=== PATIENT | male | born 1945 | race Caucasian/White ===

== ENCOUNTER 2019-07-01 10:31 | Inpatient (IN) | payer MEDICARE, OTHER ==
[~2019-07-01] VITALS: Ht 182.9 cm; Wt 76.0 kg
[~2019-07-01 10:31] MED LIST: AMLODIPINE-BEN1 EAC5 PO; ASPIRIN81 MG PO; DICYCLOMINE HCL20 MG PO; METFORMIN HCL1000 MG PO; TRILIPIX135 MG PO; VYTORIN 10-801 EACH PO
[2019-07-01] MEDS ORDERED: METHYLPREDNISOLONE SOD SUCC 125 MG/2ML VIAL IV ONE (10:45)
[2019-07-01] MEDS ORDERED: ALBUTEROL/IPRATROPIUM 3 ML NEB NEB ONE (10:45)
[2019-07-01] MEDS ORDERED: ALBUTEROL SULF 0.083% NEB SOLN 3 ML NEB ONE (11:02)
[2019-07-01] MEDS ORDERED: ALBUTEROL/IPRATROPIUM 3 ML NEB ONE (11:02)
--- NOTE | 2019-07-01 11:17 | Diagnostic Imaging Report ---
X-ray chest AP portable History: Shortness of breath and swollen ankles. Comparison: None. Findings: Central airways unremarkable. Heart size to contiguous 13. Atherosclerotic aorta. Bilateral pleural effusions, left more than right. Bilateral repeat redistribution of pulmonary blood flow with peribronchial thickening and Yuliana's B lines. Visualized skeletal structures and upper abdomen unremarkable. Incidentally seen is left brachial artery calcification. Impression: Findings suggestive of an interstitial lung process which could include interstitial pulmonary edema, congestive heart failure with atypical pattern, other interstitial diseases such as infection and inflammation. Clinical correlation is requested. Signed by: José Antonio Aguiar MD on 07/01/2019 11:14 AM
[2019-07-01] MEDS ORDERED: FUROSEMIDE INJ 10 MG/ML 4 ML VIAL ONE (11:36)
--- NOTE | 2019-07-01 12:08 | Emergency Department Note ---
History of Present Illnes History of Present Illness Chief Complaint: Respiratory History of Present Illness This is a 74 year old male with SOB and JENNINGS for 4 days. No chest chirag n. Historian: Patient Arrival Mode: Car Onset (how long ago): day(s) (4) Location: chest Quality: SOB Radiation: non-radiation Severity: moderate Onset quality: gradual Duration (how long): day(s) (4) Timing of current episode: constant Progression: worsening Chronicity: new Relieving factors: none Exacerbating factors: none Associated symptoms: shortness of breath Treatments prior to arrival: none Past Medical/Family History Physician Review I have reviewed the patient's past medical and family history. Any updates have been documented here. Past Medical History Recent Fever: No Clinical Suspicion of Infectio: No New/Unexplained Change in Ment: No Past Medical History: Hypertension, Diabetes, CAD, Hyperlipedemia Other Surgery: angioplasty Social History Smoking Cessation: Current every day smoker Counseling Performed: Yes Alcohol Use: None Any Illegal Drug Use: No TB Exposure/Symptoms: No Physically hurt or threatened: No Family History Family history of heart diseas: Yes Other Any Pre-Existing Lines (PICC,: No Is patient up to date on immun: No Last Flu: never Last Pneumovax: never Review of Systems Review of Systems Constitutional: no symptoms EENTM: no symptoms Cardiovascular: no symptoms Respiratory: no symptoms, dyspnea, dyspnea on exertion Gastrointestinal: no symptoms Genitourinary: no symptoms Musculoskeletal: no symptoms Neurological: no symptoms Psychological: no symptoms Endocrine: no symptoms Hematological/Lymphatic: no symptoms Review of other systems All other systems reviewed and negative. Physical Exam Related Data Allergies: Coded Allergies: No Known Allergies (Unverified , 06/01/12) Triage Vital Signs Vital Signs Date Time Temp Pulse Resp B/P (MAP) Pulse Ox O2 Delivery O2 Flow Rate FiO2 07/01/19 10:48 97.6 96 24 140/76 84 07/01/19 11:14 Nasal Cannula 6.0 Vital signs reviewed: Yes Physical Exam CONSTITUTIONAL Constitutional: well-developed, well-nourished HENT HENT: normocephalic, atraumatic, oropharynx clear/moist, nose normal HENT L/R: left ext ear normal, right ext ear normal EYES Eyes: PERRL, conjunctivae normal NECK Neck: ROM normal PULMONARY Pulmonary: effort normal, breath sounds normal, rales CARDIOVASCULAR Cardiovascular: regular rhythm, heart sounds normal, capillary refill normal, normal rate GASTROINTESTINAL Abdominal: soft, nontender, bowel sounds normal GENITOURINARY Genitourinary: exam deferred SKIN Skin: warm, dry MUSCULOSKELETAL Musculoskeletal: ROM normal, swelling (ANKLES) NEUROLOGICAL Neurological: alert, oriented x 3, no gross motor or sensory deficits PSYCHOLOGICAL Psychological: mood/affect normal, judgement normal Results Laboratory Lab results reviewed: Yes Imaging Imaging results reviewed: Yes Critical Care Time Total Critical Care Time (min): 45 Critical care time exclusive o: separately billable procedures Critcal care necessary due to: respiratory failure Critcal care time spent by me: develop tx plan w patient/surrogate, discussion w consultants, discussion w primary provider, evaluation patient response to tx, examination of patient Subsequent provider I assumed direction of critical care for this patient from another provider of my specialty. Assessment & Plan Reassessment Reassessment time: 12:06 Reassessment IMPROVED Assessment & Plan Final Impression: (1) Hypoxia (2) COPD (chronic obstructive pulmonary disease) (3) CHF (congestive heart failure) Assessment & Plan Pt with CHF and COPD, will admit Depart Disposition: ADMITTED Last Vital Signs Date Time Temp Pulse Resp B/P (MAP) Pulse Ox O2 Delivery O2 Flow Rate FiO2 07/01/19 11:14 84 Nasal Cannula 6.0 07/01/19 10:56 102 22 07/01/19 10:48 97.6 140/76 Home Meds Reported Medications Amlodipine Besylate/Benazepril (AMLODIPINE-BENAZEPRIL 10-40 MG) 1 Each Capsule, 10 - 40 MG PO DAILY 06/04/12 Fenofibric Acid (Choline) (TRILIPIX) 135 Mg Capsule.dr, 135 MG PO DAILY 06/04/12 Ezetimibe/Simvastatin (VYTORIN 10-80 MG TABLET) 1 Each Tablet, 10 - 80 MG PO DAILY 06/04/12 Metformin Hcl (METFORMIN HCL) 1,000 Mg Tablet, 1000 MG PO BID 06/04/12 Dicyclomine Hcl (DICYCLOMINE HCL) 20 Mg Tablet, 20 MG PO PRN 06/04/12 Aspirin (ASPIRIN) 81 Mg Tab.chew, 81 MG PO DAILY 06/04/12 Medications in the ED Albuterol/ Ipratropium 3 ml ONCE ONCE NEB Last administered on 07/01/19at 10:56; Admin Dose 3 ML; Start 07/01/19 at 10:45; Stop 07/01/19 at 10:46; Status DC Methylprednisolone Sodium Succinate 125 mg ONCE ONCE IV Last administered on 07/01/19at 10:56; Admin Dose 125 MG; Start 07/01/19 at 10:45; Stop 07/01/19 at 11:10; Status DC Albuterol Sulfate 3 ml STK-MED ONCE .ROUTE ; Start 07/01/19 at 11:02; Stop 07/01/19 at 10:59; Status DC Albuterol/ Ipratropium 3 ml STK-MED ONCE .ROUTE ; Start 07/01/19 at 11:02; Stop 07/01/19 at 10:59; Status DC Furosemide 80 mg DAILY IV Last administered on 07/01/19at 11:30; Admin Dose 80 MG; Start 07/02/19 at 09:00; Stop 08/01/19 at 08:59 Furosemide 80 mg STK-MED ONCE .ROUTE ; Start 07/01/19 at 11:36; Stop 07/01/19 at 11:32; Status DC TRACI FONSECA MD July 01, 2019 12:08
[2019-07-01] MEDS ORDERED: ASPIRIN 81 MG CHEW TAB PO ONE (12:15)
[2019-07-01] MEDS ORDERED: TRILIPIX135 MG (12:31)
[2019-07-01] MEDS ORDERED: METFORMIN HCL500 MG PO (12:31)
[2019-07-01] MEDS ORDERED: LOTREL 10-40 M1 EACH PO (12:31)
[2019-07-01] MEDS ORDERED: VYTORIN 10-801 EACH PO (12:31)
--- OUTSIDE RECORDS SUMMARY | 2019-07-01 12:49 | XMS REPORT ---
Author Author [facility] Organization [facility] Address [address] [place]. [address] [place] [phone] Phone Unavailable Care Team Providers Care Behavioral Assistant Name Role Phone TRACI FONSECA Attphys Unavailable Problems This patient has no known problems. Allergies, Adverse Reactions, Alerts This patient has no known allergies or adverse reactions. Medications This patient has no known medications. Procedures This patient has no known procedures. Results Test Description Test Time Test Comments Results Result Comments Source CXR 1 BERNARDA - JONATHAN 2019-07-01 11:11:00 [place] [address] Patient Name: JAZMINE PRESSLEY MR #: [id number] : 1945 Age/Sex: 74/M Req #: [id number] Adm Physician: Ordered by: TRACI FONSECA MD Report #: [id number] Location: [facility] Room/Bed: Procedure: [id number] HOPD/CXR 1 BERNARDA JONATHAN Exam Date: 07/01/19 Exam Time: 1108 REPORT STATUS: Signed X-ray chest AP portable History: Shortness of breath and swollen ankles. Comparison: None. Findings: Central airways unremarkable. Heart size to contiguous 13. Atherosclerotic aorta. Bilateral pleural effusions, left more than right. Bilateral repeat redistribution of pulmonary blood flow with peribronchial thickening and Yuliana's B lines. Visualized skeletal structures and upper abdomen unremarkable. Incidentally seen is left brachial artery calcification. Impression: Findings suggestive of an interstitial lung process which could include interstitial pulmonary edema, congestive heart failure with atypical pattern, other interstitial diseases such as infection and inflammation. Clinical correlation is requested. Signed by: Jesus Larson MD on 07/01/2019 11:14 AM Dictated By: JESUS LARSON MD [id number] Transcribed By: HALLE on 07/01/19 1114 COPY TO: TRACI FONSECA MD
[2019-07-01] MEDS: ALBUTEROL/IPRATROPIUM 3 ML NEB NEB SCH ×2 (13:00→19:10)
[2019-07-01 15:04] VITALS: BP 142/80
[2019-07-01 15:13] VITALS: BP 142/80
--- NOTE | 2019-07-01 15:15 | NUR ---
RECEIVED PATIENT FROM [facility] ER TO ROOM 299, HE IS IN STABLE CONDITION. AAOX4. NC @ 3L, NO ACUTE DISTRESS NOTED. ORIENTED PATIENT AND TO ROOM AND POLICIES. CALL LIGHT WITHIN REACH. BED IN THE LOWEST POSITION.
[2019-07-01] MEDS ORDERED: ATORVASTATIN CA20 MG PO (15:47)
[2019-07-01 16:45] VITALS: BP 138/86
[2019-07-01] MEDS ORDERED: DEXTROSE 50% SYRINGE 50 ML IV PRN (17:15)
[2019-07-01 18:08] LABS: CREATINE KINASE MB 3.2 ng/mL (0-5.0)
--- NOTE | 2019-07-01 19:10 | NUR ---
BEDSIDE SHIFT REPORT GIVEN TO ONCOMING NURSE. PATIENT IS SITTING UP IN SIDE OF BED, NO ACUTE DISTRESS NOTED AT THIS TIME. CALL LIGHT WITHIN REACH. BED IN THE LOWEST POSITION.
--- NOTE | 2019-07-01 19:30 | NUR ---
Patient visited in room during nursing rounds. Patient alert and oriented x3. Ambulatory in room prn. Pt edematous especially on BLE. Pt on IV lasix BID. Pt denies any discomfort or pain at this time. Call gonzales within reach. Will monitor closely.
[2019-07-01] MEDS ORDERED: FUROSEMIDE INJ 10 MG/ML 4 ML VIAL IV SCH (21:00)
[2019-07-01 21:20] VITALS: BP 147/78
[2019-07-01] MEDS: INSULIN LISPRO 100 UNIT/1 ML 3ML VIAL SQ SCH (21:20)
[2019-07-01 21:25] VITALS: BP 147/78
--- NOTE | 2019-07-01 22:35 | History and Physical ---
CHIEF COMPLAINT: A 74-year-old gentleman, who comes in with shortness of breath for a week's time. HISTORY PRESENTING ILLNESS: This is a 74-year-old gentleman with a history of hypertension, history of hyperlipidemia, history of diabetes mellitus, history of coronary artery disease, and history of angioplasty in the past, was in usually state of health until about a week ago. The patient noticed to have some shortness of breath, but it exacerbated in about four days prior to this admission. The patient started to have some orthopnea, some PND, and this morning, the patient is acutely short of breath. Decided to come to the emergency room, was found to be in acute congestive heart failure, admitted to the hospital for acute congestive heart failure. PAST MEDICAL HISTORY: History of hypertension, history of diabetes, history of hyperlipidemia, history of colon cancer in the past and also history of angioplasty by Dr. Smith. PAST SURGICAL HISTORY: History of colon resection for transverse colon cancer, history of angioplasty, and also history of L4, L5, and S1 laminectomy. SOCIAL HISTORY: Positive for ETOH. He drinks about 7-10 drinks of vodka a week. He is a smoker, has been smoking for about 40 to 50 years, two pack, currently the patient has cut it down to half-a-pack for the last four weeks or so. No IV drug abuse. and lives with the . REVIEW OF SYSTEMS: Negative for chest pain. Positive for shortness of breath. Positive for orthopnea. Positive for PND. No nausea. No vomiting. No diarrhea. No constipation. No rectal bleeding. No hematochezia. No hematemesis. No headache. No diplopia. No blurry vision. No focal neurological signs. No hyperesthesias. No paresthesias either. ALLERGIES: THE PATIENT HAS NO KNOWN DRUG ALLERGIES. FAMILY HISTORY: Noncontributory. PHYSICAL EXAMINATION: GENERAL: The patient is alert and oriented x3, very comfortable after the diuresis. The patient feels less short of breath and is also on 3 L of oxygen. VITAL SIGNS: Temperature 98.5, pulse of 96, respirations of 20, blood pressure is 138/86, pulse oximetry of 95% on 3 L of oxygen. HEENT: Normocephalic, atraumatic. Pupils are reactive. CVS: S1 and S2 normal. Regular rate and rhythm. The patient has no JVD present. LUNGS: Positive for some crackles lower lung bases. ABDOMEN: Soft, nontender, and nondistended. EXTREMITIES: Positive for 2+ edema. LABORATORY VALUES: Done at the [facility], shows white count of 8.7, hemoglobin of 9.0, hematocrit 30.2, platelets 438, RDW 16.5. Chemistries; sodium of 142, potassium of 4.4, glucose of 130, BUN of 18, creatinine 0.8, ALT 44, AST 37, T bilirubin of 0.8. BNP was 2170. Troponin was less than 0.05. Myoglobin 208, CK-MB 2.9. IMAGING STUDIES: Chest x-ray shows interstitial lung process, which could include interstitial pulmonary edema, congestive heart failure, and atypical pattern and ejection. ASSESSMENT: Mr. Karsten Alonso is a 74-year-old with: 1. Acute congestive heart failure. Plan, echocardiogram, TSH, T4, T3. Continue with IV diuresis. The patient also will be seen by Dr. Smith, Cardiology. 2. Coronary artery disease with a history of angioplasty. Continue aspirin and we will restart his home medications. 3. Hypertension. The patient is currently on Lotrel, amlodipine, and benazepril. We will continue with that. 4. Diabetes mellitus. [place] insulin sliding scale low dose. We will hold off his metformin at this time. 5. History of colon cancer. 6. Chronic obstructive pulmonary disease. Will probably need albuterol Atrovent treatments. Will need a spirometry as an outpatient basis. PLAN: Continue keep the patient inpatient and schedule discharge in 1 to 2 days depending on Cardiology's workup. Further recommendation per clinical course. We will continue to monitor the patient along with Cardiology. Daily weights and ins and outs will be monitored and also ejection fraction will be noted. MD LISSY Vazquez/JOSÉ MIGUELL /[id number]
[2019-07-02] VITALS (8 sets, daily range): BP systolic 104–129; BP diastolic 55–80
[2019-07-02] MEDS: ALBUTEROL/IPRATROPIUM 3 ML NEB NEB SCH ×4 (00:55→19:45)
--- NOTE | 2019-07-02 06:50 | NUR ---
RECEIVED BEDSIDE SHIFT REPORT FROM OFF GOING NURSE. PATIENT IS RESTING IN BED, NO S/S OF DISTRESS NOTED. CALL LIGHT WITHIN REACH. BED IN THE LOWEST POSITION.
[2019-07-02 07:09] LABS: HEMATOCRIT 26.8 % (38.2-49.6); HEMOGLOBIN 7.8 g/dL (14.0-18.0); LYMPHOCYTES # (AUTO) 0.6 (1.0-3.2); LYMPHOCYTES % 8.7 % (18.0-39.1); MEAN CORPUSCULAR HGB CONC 29.1 g/dL (31-35); MEAN CORPUSCULAR VOLUME 68.7 fL (81-99); MONOCYTES # (AUTO) 0.5 (0.2-0.8); MONOCYTES % 7.4 % (4.4-11.3); NEUTROPHILS # (AUTO) 5.8 (2.1-6.9); NEUTROPHILS % 83.6 % (38.7-80.0); PLATELET COUNT 383 x10e3/uL (140-360); RED CELL DISTRIBUTION WIDTH 18.2 % (11.7-14.4)
[2019-07-02 07:29] LABS: BLOOD UREA NITROGEN 22 mg/dL (7-26); BUN/CREATININE RATIO 25 (6-25); CALCIUM 9.5 mg/dL (8.4-10.2); CARBON DIOXIDE 25 mmol/L (22-29); CHLORIDE 104 mmol/L (98-107); CHOL/HDL RATIO 4.3 (3.9-4.7); CHOLESTEROL 134 MD/DL (0-199); CREATININE, SERUM 0.88 mg/dL (0.72-1.25); EST GLOMERULAR FILTRATION RATE > 60 ML/MIN (60-); GLUCOSE 126 mg/dL (74-118); HDL CHOLESTEROL 31 MG/DL (40-60); LDL CHOLESTEROL 89 MG/DL (60-130); MAGNESIUM 1.5 MG/DL (1.3-2.1); SODIUM 139 mmol/L (136-145); TRIGLYCERIDES 69 MG/DL (0-149)
[2019-07-02] MEDS: INSULIN LISPRO 100 UNIT/1 ML 3ML VIAL SQ SCH ×4 (07:30→21:00)
[2019-07-02 07:56] LABS: CREATINE KINASE MB 3.2 ng/mL (0-5.0)
[2019-07-02] MEDS: ATORVASTATIN 20 MG TAB PO SCH (07:59)
[2019-07-02] MEDS: BENAZEPRIL HCL 10 MG TAB PO SCH (07:59)
[2019-07-02] MEDS ORDERED: [UNRECOGNIZED DRUG - OTHER] PO SCH (09:00)
[2019-07-02] MEDS ORDERED: AMLODIPINE BESYLATE 10 MG TAB PO SCH (09:00)
[2019-07-02] MEDS ORDERED: FUROSEMIDE INJ 10 MG/ML 4 ML VIAL IV SCH ×2 (09:00)
[2019-07-02] MEDS ORDERED: BENAZEPRIL PO SCH (09:00)
[2019-07-02] MEDS ORDERED: AMLODIPINE BESYLATE PO SCH (09:00)
[2019-07-02] MEDS ORDERED: ASPIRIN 81 MG CHEW TAB PO SCH (09:00)
[2019-07-02] MEDS ORDERED: NON-FORMULARY MEDICATION (Ezetimibe/Simvastatin (Vytorin 10-80 Mg Tablet) 1 TAB) PO SCH (09:00)
--- NOTE | 2019-07-02 09:01 | Progress Note ---
DATE: NO DICTATION. MD LISSY Vazquez/MODL /[id number]
--- NOTE | 2019-07-02 09:11 | Progress Note ---
DATE: SUBJECTIVE: The patient is a 74-year-old male, who came in with acute congestive heart failure, currently feeling better after the Lasix IV. He has been diuresing well. No chest pain. Positive for some shortness of breath still. No nausea. No vomiting. No diarrhea. No constipation. OBJECTIVE: VITAL SIGNS: Temperature is 97.6, pulse 66, respirations of 20, blood pressure is 119/69, pulse oximetry of 90%. He is on 3 L of oxygen. HEENT: Normocephalic and atraumatic. Pupils are reactive. CVS: S1 and S2. Regular. ABDOMEN: Nontender, nondistended. LUNGS: Positive few crackles at lung bases. Decreased air entry into all lung wahl. EXTREMITIES: Positive for 1+ edema. LABORATORY VALUES: None done today. Labs will be drawn today. ASSESSMENT: Mr. Karsten Alonso with: 1. Acute congestive heart failure. Echocardiogram is pending. A consult with Dr. Smith is also pending. 2. Coronary artery disease with angioplasty. Continue with aspirin. 3. Hypertension. Continue with current medications. 4. Diabetes mellitus. Sliding scale is on board. 5. History of colon cancer. 6. Chronic obstructive pulmonary disorders. We will give albuterol, Atrovent treatment when needed. 7. Nicotine dependence. The patient offered nicotine patches. Currently, he is not wanting it. 8. Further recommendation per clinical course. PLAN: Discharge in 1 to 2 days depending on Cardiology workup and echocardiogram. MD LISYS Vazquez/MODL /[id number]
[2019-07-02 09:37] LABS: ANISOCYTOSIS MODERATE; HYPOCHROMASIA MODERATE; OVALOCYTES FEW; PLATELET ESTIMATE SLIGHTLY INCREASED; PLATELET MORPHOLOGY COMMENT NORMAL; RBC MORPHOLOGY COMMENT ABNORMAL
[2019-07-02] MEDS: PANTOPRAZOLE 40 MG 10ML VIAL IV SCH ×2 (10:26→17:00)
[2019-07-02 10:28] LABS: ALBUMIN 3.6 g/dL (3.5-5.0); BILIRUBIN,DIRECT 0.3 mg/dL (0.0-0.5)
--- NOTE | 2019-07-02 12:03 | Consultation ---
DATE OF CONSULTATION: 07/02/2019 REASON FOR CONSULTATION: CHF. CHIEF COMPLAINT: Shortness of breath, lower extremity edema. HISTORY OF PRESENT ILLNESS: This is a 74-year-old male with history of CAD, status post PTCA in 1992, hypertension, hyperlipidemia, diabetes, and status post colon resection. The patient presents to [facility] ER with complaints of shortness of breath and lower extremity edema for the past several weeks. However, in recent history as noted that his shortness of breath has increased, therefore came to the ER for further evaluation. On imaging, he was noted with pulmonary edema. Cardiology was consulted for CHF symptoms. The patient is seen in room and reports has been short of breath with lower extremity edema for the past several weeks, however, recently has become worse, in which he becomes very short of breath with minimal activities. Also, labs were noted. The patient is anemic. The patient does report in recent history, has noted his stools change in color from brown to dark black, intermittent black color. Also, has noticed that he feels abdominal bloating in recent history and has been taking antacids without much relief. Currently, the patient is on nasal cannula, breathing comfortably. Denies any chest pain. However, the patient also denies any overt bloody stools. PAST MEDICAL HISTORY: CAD, status post PTCA in 1992, hyperlipidemia, hypertension, diabetes, colon resection, and chronic back pains. PAST SURGICAL HISTORY: PTCA 1992, colon resection 2012, status post lumbar laminectomy. SOCIAL HISTORY: He is . He is retired from the [employer]. Positive for alcohol use about 7 to 10 vodka cocktails a week. Positive for tobacco use. Previously was smoking 2 packs per day. Now it has decreased to half a pack per day for the past several weeks, about 40 to 50-year smoking history. FAMILY HISTORY: Mother , history of breast cancer. Father , history of hypertension. ALLERGIES: NO KNOWN ALLERGIES. HOME MEDICATIONS: Include metformin 1000 mg b.i.d., Zetia 10 mg daily, simvastatin 80 mg daily, fenofibrate 135 mg daily, Norvasc 10 mg daily, and benazepril 40 mg daily. REVIEW OF SYSTEMS: CONSTITUTIONAL: Denies any weight changes, fatigue, weakness, fevers, or night sweats. SKIN: Denies any sores or rashes. HEENT: Denies any nausea, vomiting, any blurred vision, double vision, epistaxis, sore throat, or swollen neck. HEART: Denies any chest pain. Positive for dyspnea on exertion. Positive for orthopnea. Positive for lower extremity edema. RESPIRATORY: Positive for shortness of breath. Positive for cough. Denies any hemoptysis. GI: Reports good appetite. Denies any nausea, vomiting, diarrhea, or constipation. Positive for black stools. Positive for abdominal bloating. URINARY: Denies any frequency, urgency, dysuria, or hematuria. VASCULAR: Positive for lower extremity edema. MUSCULOSKELETAL: Positive for generalized joint pains and back pains. NEUROLOGIC: Denies any numbness, tingling, tremors, weakness, paralysis, fainting, blackouts, or seizures. HEMATOLOGY: Denies any bruising or bleeding, however, does report black intermittent stools. ENDOCRINE: Denies any heat or cold intolerance, polyuria, polydipsia, or polyphagia. PHYSICAL EXAMINATION: VITAL SIGNS: Height 72 inches, weight 192 pounds, BMI 26. Temperature 98.4, pulse 90, respiratory rate 16, blood pressure 115/80, and pulse ox 97% on about 6 L nasal cannula. GENERAL: Appears stated age, reliable informant. SKIN: No rashes or bruises. HEENT: Normocephalic. Pupils are equal and reactive. Extraocular movements intact. Trachea midline. No JVD. Positive right carotid bruit. HEART: Regular rate and rhythm. Soft systolic murmur heard in the right upper sternal border. PMI about 4th and 5th intercostal space. LUNGS: Diminished throughout. Some crackles in lower bases. ABDOMEN: Soft, nontender, and nondistended. No organomegaly noted. MUSCULOSKELETAL: Good muscle strength throughout. +1 to 2 lower extremity edema noted. VASCULAR: +2 radial pulses bilaterally, +1 DP/PT pulses bilaterally. NEUROLOGIC: Cranial nerves 2 through 12 seem intact. LABORATORY DATA: White count 6, hemoglobin 7.8, hematocrit 26, and platelets 383. Chemistry; sodium 139, potassium 4.0, chloride 104, BUN 22, and creatinine 0.8. Troponin 0.02, next 0.03. TSH 0.4. Chest x-ray showing pulmonary congestion. EKG showing sinus rhythm with ST changes in the inferior leads. ASSESSMENT: 1. Acute systolic heart failure. 2. Gastrointestinal bleed with reported black stools. 3. Microcytic anemia. 4. Chronic obstructive pulmonary disease/smoker. 5. Hyperlipidemia. 6. Hypertension. 7. History of coronary artery disease, status post PTCA in 1992. PLAN: The patient presents to [facility] ER with complaints of shortness of breath and lower extremity edema for several weeks, noted with pulmonary congestion on x-ray, has responded to Lasix, reporting breathing much easier this a.m., however, does report has noticed recently bloating and has been taking antacids on a regular basis and with black stools intermittently was noted with notable anemia of microcytic. We will recommend the patient undergo GI workup given this anemia and reported black stools. We will stop antiplatelet therapy. We will go ahead and put the patient on a small dose of beta-cipriano. We will continue Lasix and gentle diuresis. We will obtain echo to evaluate heart function and structure. At this time, we will treat the patient conservatively from cardiac standpoint given notable anemia and need of workup given this anemia. We will continue to monitor the patient. Thank you very much for this consult. SEEN AND EXAMINED AGREE WITH NOTE Dictated by Earl Gomes NP Mireya Smith MD DC/TOMAS /[id number] COURTNEY
[2019-07-02] MEDS ORDERED: DIATRIZOATE MEGL/DIATRIZOA SOD 30 ML BTL PO ONE (14:50)
[2019-07-02] MEDS: FUROSEMIDE 40 MG TAB PO SCH (17:00)
[2019-07-02] MEDS: METOPROLOL TARTRATE 25 MG TAB PO SCH (17:00)
--- NOTE | 2019-07-02 17:16 | Diagnostic Imaging Report ---
Exam: CT abdomen and pelvis Clinical history: Anemia, colon cancer Technique: Helical images of the abdomen and pelvis were obtained after IV contrast administration Comparison: June 12, 2012 DOSE REDUCTION: The exams was performed according to the departmental dose-optimization program which includes automated exposure control, adjustment of the mA and/or kV according to patient size and/or use of iterative reconstruction technique. Findings: Moderate size bilateral pleural effusions are noted with associated atelectasis. The cardiac size is within normal limits. The liver, spleen, pancreas, gallbladder, adrenal glands, and kidneys are unremarkable. The small and large bowels are normal in caliber without evidence of obstruction. The bladder, prostate, and seminal vesicles are unremarkable. An infrarenal abdominal aortic aneurysm is again noted measuring 4.4 x 4.5 x 11.4 cm in the transverse, AP, and craniocaudal dimensions. Mural thrombus is also noted. However, there is no flow-limiting stenosis. Extensive atherosclerotic calcification is noted throughout the abdominal and pelvic vasculatures. There is no evidence of lymphadenopathy or free fluid. The IVC is within normal limits. Impression: 1. Infrarenal abdominal aortic aneurysm with interval increase in size from 3.7 x 3.7 cm previously to 4.5 x 4.4 cm today. Surgical consultation and 6 months follow-up is recommended. 2. Bilateral moderate pleural effusions with associated compressive atelectasis. Signed by: Dr. Avi Stevenson MD on 07/02/2019 5:13 PM
[2019-07-02] MEDS ORDERED: IOPAMIDOL 370 MG/ML 200 ML INFUS..BTL INJ ONE (17:54)
[2019-07-02] MEDS ORDERED: SODIUM CHLORIDE 0.9% 50ML 50 ML ONE (17:54)
--- NOTE | 2019-07-02 19:20 | NUR ---
patient received awake, alert, lying quietly in bed. no c/o pain noted. pm assessment complete. patient instructed to call for assistance when needed.
--- NOTE | 2019-07-02 21:20 | NUR ---
patient refused sliding scale insulin at this time.
[2019-07-03] VITALS (8 sets, daily range): BP systolic 100–129; BP diastolic 54–72
[2019-07-03] MEDS: ALBUTEROL/IPRATROPIUM 3 ML NEB NEB SCH ×4 (00:45→20:00)
[2019-07-03 06:24] LABS: BASOPHILS % 0.5 % (0.0-1.0); EOSINOPHILS # (AUTO) 0.1 (0.0-0.4); EOSINOPHILS % 1.4 % (0.0-6.0); HEMATOCRIT 25.4 % (38.2-49.6); HEMOGLOBIN 7.4 g/dL (14.0-18.0); LYMPHOCYTES # (AUTO) 1.4 (1.0-3.2); LYMPHOCYTES % 15.9 % (18.0-39.1); MEAN CORPUSCULAR HEMOGLOBIN 20.2 pg (28-32); MEAN CORPUSCULAR HGB CONC 29.1 g/dL (31-35); MEAN CORPUSCULAR VOLUME 69.4 fL (81-99); MONOCYTES # (AUTO) 0.7 (0.2-0.8); MONOCYTES % 8.1 % (4.4-11.3); NEUTROPHILS # (AUTO) 6.3 (2.1-6.9); NEUTROPHILS % 73.4 % (38.7-80.0); PLATELET COUNT 339 x10e3/uL (140-360); RED BLOOD COUNT 3.66 x10e6/uL (4.3-5.7); RED CELL DISTRIBUTION WIDTH 18.2 % (11.7-14.4)
[2019-07-03 06:53] LABS: ALANINE AMINOTRANSFERASE 23 IU/L (0-55); ALBUMIN 3.4 g/dL (3.5-5.0); ALBUMIN/GLOBULIN RATIO 1.1 (0.8-2.0); ALKALINE PHOSPHATASE 32 IU/L (40-150); ANION GAP 14.4 mmol/L (8-16); BLOOD UREA NITROGEN 26 mg/dL (7-26); BUN/CREATININE RATIO 25 (6-25); CALCIUM 8.7 mg/dL (8.4-10.2); CARBON DIOXIDE 28 mmol/L (22-29); CHLORIDE 100 mmol/L (98-107); CREATININE, SERUM 1.06 mg/dL (0.72-1.25); EST GLOMERULAR FILTRATION RATE > 60 ML/MIN (60-); GLUCOSE 101 mg/dL (74-118); POTASSIUM 4.4 mmol/L (3.5-5.1); SODIUM 138 mmol/L (136-145)
[2019-07-03] MEDS: INSULIN LISPRO 100 UNIT/1 ML 3ML VIAL SQ SCH ×4 (07:30→20:51)
[2019-07-03] MEDS: ATORVASTATIN 20 MG TAB PO SCH (09:32)
[2019-07-03] MEDS: FUROSEMIDE 40 MG TAB PO SCH (09:32)
[2019-07-03] MEDS: PANTOPRAZOLE 40 MG 10ML VIAL IV SCH ×2 (09:32→17:14)
[2019-07-03] MEDS: METOPROLOL TARTRATE 25 MG TAB PO SCH ×2 (09:33→16:58)
[2019-07-03] MEDS: BENAZEPRIL HCL 10 MG TAB PO SCH (09:33)
--- NOTE | 2019-07-03 09:42 | Progress Note ---
DATE: SUBJECTIVE: This is a 74-year-old gentleman who came in with acute on chronic congestive heart failure. In addition, the patient also was found to have a drop in hemoglobin and hematocrit, which prompted a study with Dr. Suárez, who was possibly going to do an endoscopy and colonoscopy. The patient's stool guaiac was negative. The patient also has pleural effusion seen on echocardiogram. EF was noted to be on the lower side 35%. Currently, the patient is asymptomatic, no chest pain, no shortness of breath and no nausea, vomiting, or diarrhea. OBJECTIVE: VITAL SIGNS: Temperature is 97.6, pulse of 78, respirations of 20, blood pressure is 125/72, pulse oximetry of 96%. HEENT: Normocephalic, atraumatic. Pallor present. CVS: S1 and S2 normal. Regular rate and rhythm. LUNGS: Positive for crackles in the lung with and also fine crackles in the upper lobes. ABDOMEN: Soft, nontender, nondistended. EXTREMITIES: No clubbing, no cyanosis, no edema. LABORATORY VALUES: White count is 8.63, hemoglobin is stabilized to 7.4, hematocrit 25.4. Chemistries; iron studies are pending. Sodium is 138, potassium 4.4, BUN of 26, and creatinine of 1.06. Vitamin B12 and folate are pending too. Serology; tolentino virus not detected and stool cultures negative as mentioned above. IMAGING STUDIES: An abdominal CT was done shows infrarenal abdominal aneurysm 3.37 initially on the previous study, but currently it is 4.5 to 4.4 and bilateral pleural effusion with associated compressive atelectasis. ASSESSMENT: Mr. Alonso with: 1. Acute on chronic congestive heart failure with depressed ejection fraction. 2. Possible gastrointestinal bleed, could be from upper GI, needs an endoscopy. 3. Pleural effusion and probable chronic obstructive pulmonary disease. We will need a CT of the lungs to further evaluate his lung. 4. Abdominal aortic aneurysm, enlarging in size. We will need surgical evaluation at a later date. 5. Diabetes mellitus, well-controlled. 6. Hypertension and hypertensive heart disease with congestive heart failure. PLAN: We will go ahead and follow up with iron and iron studies and vitamin B12 studies. We will need endoscopy. We will need cardiological workup and also we will do a CT scan of the lungs after colonoscopy and endoscopy. Further recommendation per clinical course. We will continue to monitor the patient. Currently, the patient is on IV diuresis and neb treatments for his COPD/bronchitis. Metoprolol has been added and continuum of statins right now. Further recommendation per clinical course. MD LISSY Vazquez/MODL /[id number]
[2019-07-03 10:09] LABS: FERRITIN 15.74 ng/mL (21.81-274.66)
[2019-07-03] MEDS ORDERED: METOLAZONE 5 MG TAB PO ONE ×2 (15:00→18:30)
[2019-07-03] MEDS ORDERED: FUROSEMIDE 40 MG TAB PO SCH (17:00)
--- NOTE | 2019-07-03 17:09 | NUR ---
Nutrition Screen Note RD Recommendation for Physician: -Continue cardiac diet Plan of Care: RD following, monitoring for tolerance and adequacy Nutrition reason for involvement: Diagnosis - CHF Primary Diagnose(s): CHF PMH: hypertension, diabetes, hyperlipidemia, colon cancer in the past and also history of angioplasty Ht: 72 in Wt:192 lb BMI: 26.0 kg/m2 IBW:[address] Assessment: (07/02) Chart reviewed. Labs and meds reviewed. Pt is a 74 year old male admitted with CHF. Pt reports a good appetite and mentioned he is eating all of his meals. No weight loss reported. No N/V/D/C or chewing/swallowing issues. Will continue to monitor. Current Diet: cardiac Malnutrition Evaluation (07/03/19) The patient does not meet criteria for a specified degree of malnutrition at this time. Will re-evaluate at follow-up as appropriate. Diet Education Needs Assessment: pt declined diet education materials at time of visit Nutrition Care Level: low Signed: Anh Navarrete, RD, LD
[2019-07-03] MEDS: IRON SUCROSE 100 MG in SODIUM CHLORIDE 0.9% 100 ML 100 ML IV SCH (17:14)
[2019-07-03] MEDS: SUCRALFATE 1 GM TAB PO SCH ×2 (17:27→20:53)
--- NOTE | 2019-07-03 18:40 | NUR ---
patient sitting up in bed, Alert with no distress, call light in reach
--- NOTE | 2019-07-03 19:05 | NUR ---
patient received awake, alert, lying quietly in bed. no c/o pain noted. pm assessment complete. patient instructed to call for assistance when needed.
[2019-07-03 20:23] LABS: PLATELET ESTIMATE ADEQUATE; PLATELET MORPHOLOGY COMMENT NORMAL
[2019-07-03 20:26] LABS: RBC MORPHOLOGY COMMENT ABNORMAL
[2019-07-03 20:27] LABS: ANISOCYTOSIS SLIGHT; HYPOCHROMASIA MARKED; POIKILOCYTOSIS SLIGHT
[2019-07-03 20:28] LABS: MICROCYTOSIS MODERATE
[2019-07-04] VITALS (8 sets, daily range): BP systolic 96–124; BP diastolic 49–72
[2019-07-04] MEDS: ALBUTEROL/IPRATROPIUM 3 ML NEB NEB SCH ×4 (01:30→19:58)
[2019-07-04 06:42] LABS: BASOPHILS % 0.4 % (0.0-1.0); EOSINOPHILS # (AUTO) 0.3 (0.0-0.4); HEMATOCRIT 27.2 % (38.2-49.6); HEMOGLOBIN 7.8 g/dL (14.0-18.0); LYMPHOCYTES # (AUTO) 1.2 (1.0-3.2); LYMPHOCYTES % 13.9 % (18.0-39.1); MEAN CORPUSCULAR HEMOGLOBIN 20.3 pg (28-32); MEAN CORPUSCULAR HGB CONC 28.7 g/dL (31-35); MEAN CORPUSCULAR VOLUME 70.8 fL (81-99); MONOCYTES # (AUTO) 0.8 (0.2-0.8); MONOCYTES % 9.8 % (4.4-11.3); NEUTROPHILS % 72.5 % (38.7-80.0); PLATELET COUNT 355 x10e3/uL (140-360); RED BLOOD COUNT 3.84 x10e6/uL (4.3-5.7)
[2019-07-04 07:03] LABS: ALANINE AMINOTRANSFERASE 22 IU/L (0-55); ALBUMIN 3.5 g/dL (3.5-5.0); ALBUMIN/GLOBULIN RATIO 1.2 (0.8-2.0); ALKALINE PHOSPHATASE 32 IU/L (40-150); ANION GAP 13.9 mmol/L (8-16); BLOOD UREA NITROGEN 21 mg/dL (7-26); BUN/CREATININE RATIO 21 (6-25); CALCIUM 9.7 mg/dL (8.4-10.2); CARBON DIOXIDE 33 mmol/L (22-29); CHLORIDE 100 mmol/L (98-107); CREATININE, SERUM 1.02 mg/dL (0.72-1.25); EST GLOMERULAR FILTRATION RATE > 60 ML/MIN (60-); GLUCOSE 94 mg/dL (74-118); POTASSIUM 4.9 mmol/L (3.5-5.1); SODIUM 142 mmol/L (136-145)
[2019-07-04] MEDS: INSULIN LISPRO 100 UNIT/1 ML 3ML VIAL SQ SCH ×4 (07:30→20:23)
[2019-07-04] MEDS ORDERED: METOLAZONE 5 MG TAB PO ONE (07:45)
[2019-07-04] MEDS: SUCRALFATE 1 GM TAB PO SCH ×4 (08:08→20:23)
[2019-07-04] MEDS: PANTOPRAZOLE 40 MG 10ML VIAL IV SCH ×2 (08:44→16:58)
--- NOTE | 2019-07-04 08:45 | Progress Note ---
DATE: SUBJECTIVE: A 74-year-old male, who came in with acute congestive heart failure. Currently, the patient is scheduled to get a colonoscopy and endoscopy on Friday tomorrow. The patient is otherwise doing fine. No chest pain or shortness of breath. He is able to sit up. No orthopnea, no PND. OBJECTIVE: VITAL SIGNS: Temperature is 98.6, pulse of 79, respirations of 18, blood pressure is 120/72, pulse oximetry of 92% on 6 L of oxygen. HEENT: Normocephalic and atraumatic. Pupils are reactive. No JVD present. CVS: S1 and S2 normal. Regular rate and rhythm. ABDOMEN: Nontender, nondistended. EXTREMITIES: No clubbing, no cyanosis, edema has decreased. LABORATORY DATA: Hemoglobin 7.8, hematocrit of 27.2. Chemistries pending today. Glucoses are running in the 170s. Serology tolentino virus not detected and stool occult was negative. ASSESSMENT AND PLAN: 1. Mr. Karsten rodriguez with acute on chronic congestive heart failure with depressed ejection fraction. 2. Gastrointestinal bleed, needs endoscopy. 3. Pleural effusion. We will do a CT scan of endoscopies are done. 4. Abdominal aortic aneurysm. We will need endovascular surgery. 5. Diabetes mellitus, controlled with insulin sliding scale. 6. Hypertension and hypertensive heart disease. Continue with Lasix. Further recommendation per clinical course. We will continue to monitor the patient and medicines reviewed and continue. MD LISSY Vazquez/MODL /[id number]
[2019-07-04] MEDS: BENAZEPRIL HCL 10 MG TAB PO SCH (08:46)
[2019-07-04] MEDS: ATORVASTATIN 20 MG TAB PO SCH (08:46)
[2019-07-04] MEDS: METOPROLOL TARTRATE 25 MG TAB PO SCH ×2 (08:46→16:58)
[2019-07-04] MEDS: FUROSEMIDE INJ 10 MG/ML 4 ML VIAL IV SCH ×2 (08:46→16:58)
[2019-07-04 11:33] LABS: ANISOCYTOSIS SLIG; HYPOCHROMASIA MODERATE; MICROCYTOSIS MODE; PLATELET ESTIMATE ADEQUATE; PLATELET MORPHOLOGY COMMENT NORMAL; RBC MORPHOLOGY COMMENT ABNORMAL
[2019-07-04] MEDS: IRON SUCROSE 100 MG in SODIUM CHLORIDE 0.9% 100 ML 100 ML IV SCH (15:04)
--- NOTE | 2019-07-04 17:42 | NUR ---
patient up in bed, Alert with no distress, on O2 high flow, call light in reach
--- NOTE | 2019-07-04 19:07 | NUR ---
Received bedside report from day nurse. Patient awake and resting in bed, no s/s of distress at this time. All safety measures in place. Will continue to monitor.
--- NOTE | 2019-07-04 23:44 | NUR ---
Per Dr. Red Suárez, plan for EGD and colonoscopy in AM. Received orders to give 20 mg Dulcolax now, and then 20 mg Dulcolax in 30 minutes x2, for a total of 3 doses. Give one bottle of mag citrate at 5AM and another bottle at 7AM, and then keep patient NPO.
[2019-07-05] VITALS (8 sets, daily range): BP systolic 92–124; BP diastolic 43–75
[2019-07-05] MEDS ORDERED: BISACODYL 5 MG TAB EC PO ONE ×2 (00:30)
[2019-07-05] MEDS: ALBUTEROL/IPRATROPIUM 3 ML NEB NEB SCH ×4 (01:05→19:48)
[2019-07-05] MEDS ORDERED: CITRATE OF MAGNESIA 300ML BOTTLE PO ONE ×2 (05:00→07:00)
[2019-07-05 05:56] LABS: BASOPHILS % 0.4 % (0.0-1.0); EOSINOPHILS # (AUTO) 0.2 (0.0-0.4); EOSINOPHILS % 2.5 % (0.0-6.0); LYMPHOCYTES # (AUTO) 1.2 (1.0-3.2); MONOCYTES % 9.9 % (4.4-11.3); NEUTROPHILS # (AUTO) 7.2 (2.1-6.9); NEUTROPHILS % 74.8 % (38.7-80.0); PLATELET COUNT 421 x10e3/uL (140-360); RED BLOOD COUNT 4.49 x10e6/uL (4.3-5.7); RED CELL DISTRIBUTION WIDTH 18.2 % (11.7-14.4)
[2019-07-05 06:18] LABS: ALBUMIN 3.8 g/dL (3.5-5.0); ALBUMIN/GLOBULIN RATIO 1.1 (0.8-2.0); CALCIUM 10.1 mg/dL (8.4-10.2); CREATININE, SERUM 1.25 mg/dL (0.72-1.25)
--- NOTE | 2019-07-05 07:08 | NUR ---
Received patient lying in bed with eyes open. Respiration even and unlabored without SOB. Call light in reach. PAtient is currently NPO at this time for procedure.
[2019-07-05] MEDS: INSULIN LISPRO 100 UNIT/1 ML 3ML VIAL SQ SCH ×4 (07:30→21:00)
[2019-07-05] MEDS: SUCRALFATE 1 GM TAB PO SCH ×4 (07:30→21:53)
[2019-07-05] MEDS: FUROSEMIDE INJ 10 MG/ML 4 ML VIAL IV SCH (08:01)
[2019-07-05] MEDS: PANTOPRAZOLE 40 MG 10ML VIAL IV SCH ×2 (08:01→16:27)
--- NOTE | 2019-07-05 08:45 | Progress Note ---
DATE: SUBJECTIVE: The patient is a 74-year-old male, who came in with acute congestive heart failure, systolic. The patient is currently scheduled for an EGD and colonoscopy in lieu of his microcytic anemia. No complaints and the patient had a bowel prep starting last night and has several episodes of watery stool. OBJECTIVE: VITAL SIGNS: Temperature is 98.8, pulse of 88, respirations of 20, blood pressure is 98/75 and pulse oximetry of 93%. HEENT: Normocephalic, atraumatic. Pupils are reactive. CVS: S1 and S2 normal. Regular rate and rhythm. ABDOMEN: Nontender, nondistended. EXTREMITIES: Trace edema. LABORATORY VALUES: Hemoglobin 9, hematocrit of 31.0. Chemistries are stable. BUN of 21, creatinine of 1.25. ASSESSMENT AND PLAN: Mr. Karsten Alonso with: 1. Acute on chronic congestive heart failure with depressed ejection fraction. 2. Gastrointestinal bleeding. 3. Pleural effusion. 4. Abdominal aortic aneurysm. 5. Diabetes. 6. Hypertension, currently hypertensive. 7. Plan to continue with current medications, schedule for endoscopy today. We will need a CT after endoscopy is done of the chest. Abdominal aneurysm will need endovascular surgery on a later date. 8. Diabetes mellitus. Continue on sliding scale, hypertension and hypertensive disease. We will monitor his blood pressure and his volume status. MD LISSY Vazquez/MODL /[id number]
[2019-07-05] MEDS: METOPROLOL TARTRATE 25 MG TAB PO SCH ×2 (09:00→16:27)
[2019-07-05] MEDS: ATORVASTATIN 20 MG TAB PO SCH (09:00)
[2019-07-05] MEDS: BENAZEPRIL HCL 10 MG TAB PO SCH (09:00)
[2019-07-05 12:28] LABS: HYPOCHROMASIA MODERATE; MICROCYTOSIS MODERATE; PLATELET ESTIMATE ADEQUATE; PLATELET MORPHOLOGY COMMENT NORMAL; RBC MORPHOLOGY COMMENT ABNORMAL
--- NOTE | 2019-07-05 13:45 | NUR ---
Transported patient for the procedure at this time.
--- NOTE | 2019-07-05 16:15 | NUR ---
Patient is back from procedure. awake, alert. Respiration even and unlabored without SOB. Call light in reach.
[2019-07-05] MEDS: IRON SUCROSE 100 MG in SODIUM CHLORIDE 0.9% 100 ML 100 ML IV SCH (16:26)
--- NOTE | 2019-07-05 16:41 | Operative Report ---
DATE OF PROCEDURE: 07/05/2019 SURGEON: Alok Suárez MD PROCEDURES: EGD with biopsies and colonoscopy with polypectomy. INDICATION FOR EGD: Dyspepsia. INDICATIONS FOR COLONOSCOPY: Iron deficiency anemia. History of CA of colon. MEDICATIONS: The patient was done under MAC, please see anesthesiologist's note. PROCEDURE IN DETAIL: With the patient in left lateral decubitus position, a flexible fiberoptic Olympus gastroscope was introduced into the esophagus under direct visualization without any difficulty. There was some patchy erythema noted in distal esophagus. Two minute tongues of velvety red mucosa were noted to extend proximally from the GE junction. Biopsies were obtained to rule out Nguyen's. The scope was then advanced with ease into the stomach, traversing a small hiatal hernia. Mucosa overlying the antrum revealed some patchy areas of erythema. Several minute ulcers were noted in the antrum and biopsies were obtained. A prominent fold that was also noted in the antrum and that was also biopsied. Pylorus was intubated with ease and the scope was advanced all the way to the second portion of the duodenum. A minute nodule was biopsied from the proximal second portion of the duodenal bulb, appeared to be within normal limits. The scope was then withdrawn back into the stomach and retroflexed, and mucosa overlying the fundus and cardia appeared to be within normal limits. The scope was then straightened out, it was subsequently withdrawn. The patient tolerated the procedure well. IMPRESSION: 1. Mild distal esophagitis. 2. Rule out Nguyen's esophagus. 3. Small hiatal hernia. 4. Gastric ulcers, minute, antrum biopsied. 5. Prominent fold, antrum biopsied. 6. Minute nodule, proximal second portion of the duodenum biopsied. PLAN: 1. Follow up histology. 2. Initiate Protonix 40 mg one p.o. q.a.m. a.c. 3. Biopsies of the prominent antral fold were benign, will need a followup EGD in 2 months to re-evaluate the fold and possibly obtain additional biopsies. DESCRIPTION OF PROCEDURE: The patient was then turned around after adequate lubrication of the anal canal, a flexible fiberoptic Olympus colonoscope was inserted into the rectum with ease and advanced all the way to the cecum. Mucosa overlying the cecum appeared to be within normal limits. Two sessile polyps were removed from the proximal ascending colon with hot snare polypectomy. One minute polyp in the distal ascending colon was removed per the cold biopsy forceps. Transverse colon appeared to be within normal limits. One polyp was hot snared from the descending colon. Diverticular disease was noted in the distal descending and the sigmoid colon. Two hyperplastic appearing polyps were removed per hot snare polypectomy from the sigmoid colon. The rectum appeared to be within normal limits. The scope was then retroflexed into the distal rectum and small internal hemorrhoids were noted, none of which was actively bleeding. The scope was then straightened out, it was subsequently withdrawn. The patient tolerated the procedure well. IMPRESSION: 1. Ascending colon polyps x3, two removed per hot snare polypectomy and one per cold biopsy forceps. 2. Descending colon polyp hot snared. 3. Diverticulosis. 4. Sigmoid colon polyp x2, removed per hot snare polypectomy. 5. Anastomosis was noted at 15 cm from the anal verge and that was intact, and there were no evidence of recurrence. 6. Internal hemorrhoids, none actively bleeding. PLAN: 1. Followup histology. 2. The patient will need small bowel series. 3. Colonoscopy in 3 years. Alok Suárez MD [facility] /[id number] cc: Partha Allan MD
--- NOTE | 2019-07-05 19:25 | NUR ---
RECEVED BEDSIDE SHIFT REPORT FROM DAY RN. PT IS ALERT AND ORIENTED X3. O2 ON 5L PER N/C. RESPIRATIONS ARE EVEN AND UNLABORED. TELE #13 ON. LUNGS ARE CLEAR.VOIDING PER URINAL. URINE IS CLEAR YELLOW. 20 G RT FA SL INTACT.PT DID NOT EAT DINNER. HE REFUSED INSULIN AT HS. OFFER SNACK BUT REFUSED. CALL LIGHT WITHIN REACH. BED LOCKED AND IN LOW POSITION. BED ALARM ON.
[2019-07-05] MEDS ORDERED: PROPOFOL IV EMULSION 10 MG/ML 20 ML VIAL ONE (19:28)
[2019-07-05] MEDS ORDERED: GLYCOPYRROLATE INJ 0.2 MG/ML VIAL ONE (19:28)
[2019-07-06] VITALS (7 sets, daily range): BP systolic 101–123; BP diastolic 53–61
[2019-07-06] MEDS: ALBUTEROL/IPRATROPIUM 3 ML NEB NEB SCH ×4 (01:10→19:52)
[2019-07-06 06:11] LABS: BASOPHILS # (AUTO) 0.1 (0.0-0.1); BASOPHILS % 0.4 % (0.0-1.0); EOSINOPHILS # (AUTO) 0.2 (0.0-0.4); EOSINOPHILS % 1.8 % (0.0-6.0); HEMATOCRIT 29.7 % (38.2-49.6); HEMOGLOBIN 8.9 g/dL (14.0-18.0); LYMPHOCYTES # (AUTO) 1.6 (1.0-3.2); LYMPHOCYTES % 13.8 % (18.0-39.1); MEAN CORPUSCULAR HEMOGLOBIN 21.1 pg (28-32); MEAN CORPUSCULAR VOLUME 70.5 fL (81-99); MONOCYTES # (AUTO) 1.2 (0.2-0.8); MONOCYTES % 10.9 % (4.4-11.3); NEUTROPHILS # (AUTO) 8.3 (2.1-6.9); NEUTROPHILS % 72.7 % (38.7-80.0); PLATELET COUNT 421 x10e3/uL (140-360); RED BLOOD COUNT 4.21 x10e6/uL (4.3-5.7); RED CELL DISTRIBUTION WIDTH 19.8 % (11.7-14.4)
[2019-07-06 06:29] LABS: ALBUMIN 3.4 g/dL (3.5-5.0); ANION GAP 13.7 mmol/L (8-16); CALCIUM 9.1 mg/dL (8.4-10.2); CREATININE, SERUM 1.24 mg/dL (0.72-1.25); POTASSIUM 3.7 mmol/L (3.5-5.1)
--- NOTE | 2019-07-06 07:00 | NUR ---
Received bedside shift report from off going nurse. Patient is resting in bed, no s/s of distress noted at this time. Call light within reach. Bed in the lowest position.
[2019-07-06] MEDS: INSULIN LISPRO 100 UNIT/1 ML 3ML VIAL SQ SCH ×4 (07:30→21:00)
[2019-07-06] MEDS: PANTOPRAZOLE 40 MG 10ML VIAL IV SCH ×2 (07:57→16:06)
[2019-07-06] MEDS: FUROSEMIDE 40 MG TAB PO SCH (07:57)
[2019-07-06] MEDS: BENAZEPRIL HCL 10 MG TAB PO SCH (07:57)
[2019-07-06] MEDS: ATORVASTATIN 20 MG TAB PO SCH (07:57)
[2019-07-06] MEDS: SUCRALFATE 1 GM TAB PO SCH ×4 (07:57→21:30)
[2019-07-06] MEDS: METOPROLOL TARTRATE 25 MG TAB PO SCH ×2 (07:57→16:06)
--- NOTE | 2019-07-06 08:28 | Progress Note ---
DATE: SUBJECTIVE: A 74-year-old gentleman who came in with acute congestive heart failure, systolic. The patient is currently feeling better. Had EGD and colonoscopy. EGD showed gastritis and also gastric ulcer. The patient is currently on Carafate for the same and PPI. No chest pain. No shortness of breath. Blood sugars have been running low because the patient did not have anything to eat yesterday. OBJECTIVE: VITAL SIGNS: Temperature is 98.4, pulse of 87, respirations of 18, blood pressure is 113/61, pulse oximetry of 98%. HEENT: Normocephalic, atraumatic. Pupils reactive. CVS: S1 and S2 normal. Regular rhythm. ABDOMEN: Soft, nontender, nondistended. EXTREMITIES: No clubbing, no cyanosis. Edema has decreased. LABORATORY VALUES: White count is 11, hemoglobin of 8.9, hematocrit of 29.7. Chemistries; sodium 136, potassium 3.7, BUN of 19, creatinine of 1.24. MEDICATIONS: Reviewed. The patient is currently on Carafate, metoprolol, atorvastatin, and furosemide 40 mg daily. ASSESSMENT: Mr. Karsten Alonso with: 1. Gastric ulcer. The patient is currently on Carafate and PPI. 2. Acute congestive heart failure. Lasix and volume assessment. 3. The patient has diabetes mellitus and hyperlipidemia. Continue current medication. 4. The patient needs risk stratification. This can be done as an outpatient if it is okay with Dr. Smith. PLAN: Discharged on Carafate and follow up with Dr. Smith and also Dr. Alok Suárez. Further recommendation per clinical course. We will continue to monitor the patient and will be followed up with his PCP, Dr. Peterson as an outpatient. MD LISSY Vazquez/JOSÉ MIGUELL /[id number]
--- NOTE | 2019-07-06 12:10 | NUR ---
Patient's oxygen dropped to 3L NC, patient is tolerating well. Denies SOB at this time.
[2019-07-06] MEDS: IRON SUCROSE 100 MG in SODIUM CHLORIDE 0.9% 100 ML 100 ML IV SCH (14:09)
--- NOTE | 2019-07-06 15:20 | NUR ---
Per CHRIS Elliott. Patient is ok to discharge home. He is to follow up with strap buckler for outpatient work up.
--- NOTE | 2019-07-06 16:06 | NUR ---
Received order for home o2. Spoke to pt at bedside. Pt states that he only has MCR part A. CM verified this with note from [employer]. Informed pt that with part A only, home oxygen would not be covered. Pt was fine with self pay for oxygen, states he was actually trying to get oxygen prior to coming to hospital. CM informed pt of self pay prices. Pt gave choice for [facility]. Signed choice letter placed in front of chart. Copy to pt. IMM letter delivered and explained. Pt verbalized understanding. Signed copy placed in chart. Copy to pt. Informed Jesus with [facility] of oxygen referral. He will come deliver portables and worm picker clinicals.
--- NOTE | 2019-07-06 16:49 | NUR ---
Jesus Pereyra is here to deliver portable tanks and picked up clinicals.
--- NOTE | 2019-07-06 19:18 | NUR ---
BEDSIDE SHIFT REPORT GIVEN TO ONCOMING NURSE. PATIENT IS RESTING IN BED, NO ACUTE DISTRESS NOTED. CALL LIGHT WITHIN REACH. BED IN THE LOWEST POSITION.
[2019-07-07] VITALS: BP 108/56
[2019-07-07] MEDS: ALBUTEROL/IPRATROPIUM 3 ML NEB NEB SCH ×2 (01:12→07:15)
[2019-07-07 04:00] VITALS: BP_SYST 109; BP_SYST 115; BP_DIAS 53; BP_DIAS 57
[2019-07-07 07:26] LABS: HEMATOCRIT 32.4 % (38.2-49.6); HEMOGLOBIN 9.3 g/dL (14.0-18.0)
[2019-07-07] MEDS: INSULIN LISPRO 100 UNIT/1 ML 3ML VIAL SQ SCH (07:30)
[2019-07-07] MEDS ORDERED: BENAZEPRIL HCL10 MG PO (07:37)
[2019-07-07] MEDS ORDERED: albuterol hfa INH (07:40)
[2019-07-07] MEDS ORDERED: metoprolol PO (07:40)
[2019-07-07] MEDS ORDERED: CARAFATE1 GM/10 ML PO (07:41)
[2019-07-07] MEDS ORDERED: FUROSEMIDE40 MG PO (07:41)
[2019-07-07] MEDS ORDERED: PROTONIX20 MG PO (07:42)
[2019-07-07 08:16] VITALS: BP 118/58
[2019-07-07] MEDS: SUCRALFATE 1 GM TAB PO SCH (08:35)
[2019-07-07] MEDS: PANTOPRAZOLE 40 MG 10ML VIAL IV SCH (08:35)
[2019-07-07] MEDS: FUROSEMIDE 40 MG TAB PO SCH (08:35)
[2019-07-07] MEDS: ATORVASTATIN 20 MG TAB PO SCH (08:35)
[2019-07-07] MEDS: BENAZEPRIL HCL 10 MG TAB PO SCH (08:36)
[2019-07-07] MEDS: METOPROLOL TARTRATE 25 MG TAB PO SCH (08:36)
[2019-07-07 09:00] VITALS: BP 118/58
--- NOTE | 2019-07-07 10:04 | NUR ---
Left FA IV discontinued. No signs of infiltration noted. 2x2 gauze and coban placed. Taken via wheelchair by PCT to personal car. Accompanied by . AAOX4 to time, person, place, situation. Respirations even and unlabored. O2 3L NC via home O2. Discharge instructions, rx, and all personal belongings taken with patient.
--- NOTE | 2019-07-07 10:14 | Progress Note ---
DATE: SUBJECTIVE: A 74-year-old gentleman, who came in with acute congestive heart failure. The patient has also has COPD. The patient also has diabetes. The patient had EGD and colonoscopy, which shows gastritis and also gastric ulcers. The patient was started on Carafate medications. At this time, albuterol Atrovent treatments, atorvastatin, benazepril, metoprolol, and pantoprazole. The patient has been given iron sucrose and Carafate. No chest pain. Positive shortness of breath on exertion. No nausea, vomiting, or diarrhea. No constipation. No rectal bleeding. No hematochezia. No hematemesis. Positive for hypoxia on exertion. The patient needs home O2. Evaluation has been done and the patient will need one. OBJECTIVE: VITAL SIGNS: Temperature is 99, pulse of 81, respirations of , blood pressure is 109/53, and pulse oximetry of 93% on 3 L of nasal cannula. HEENT: Normocephalic and atraumatic. Pupils reactive to light and accommodation. CVS: S1 and S2 normal. Regular rhythm. ABDOMEN: Nontender and nondistended. EXTREMITIES: Trace edema. LABORATORY VALUES: Hematology and chemistries has not been done. We will repeat H and H today before discharge. PLAN: Okayed discharge today with O2. The patient need to follow up with his primary care physician Dr. Morgan and we will order a CT scan as an outpatient basis of his lungs. Also, the patient will need to re-evaluate his aortic aneurysm and probably needs an endovascular surgery and prior to this the patient will also need a cardiac risk stratification and also possible catheterization to find out the etiology of his heart failure. Further recommendation per clinical course. The patient is stable enough to go home with O2. Strict ER warnings have been given and the patient will follow up with Dr. Ragland, Dr. Morgan and possibly we will need a mobile security specialist on discharge and this has been stressed to the patient. Further recommendation again as an outpatient and again strict ER warnings given to the patient. MD LISSY Vazquez/TOMAS /[id number]
== END 2019-07-07 10:04 | disposition home or self-care (01) | DRG 291 ==
LOC: FSED 10:31 → ERHOLD 12:15 → MED/SURG3 13:58
PROVIDERS: ADMIT Family Medicine; ATTEND Family Medicine
PROC: 0DBN8ZX Excision of Sigmoid Colon, Via Natural or Artificial Opening Endoscopic, Diagnostic (ICD-10-PCS; 2019-07-05)
PROC: 0DBM8ZX Excision of Descending Colon, Via Natural or Artificial Opening Endoscopic, Diagnostic (ICD-10-PCS; 2019-07-05)
PROC: 0DB98ZX Excision of Duodenum, Via Natural or Artificial Opening Endoscopic, Diagnostic (ICD-10-PCS; principal; 2019-07-05 11:00)
PROC: 0DB68ZX Excision of Stomach, Via Natural or Artificial Opening Endoscopic, Diagnostic (ICD-10-PCS; 2019-07-05 11:00)
PROC: 0DBK8ZX Excision of Ascending Colon, Via Natural or Artificial Opening Endoscopic, Diagnostic (ICD-10-PCS; 2019-07-05 11:00)
DX: I11.0 Hypertensive heart disease with heart failure (principal); K25.4 Chronic or unspecified gastric ulcer with hemorrhage; I50.21 Acute systolic (congestive) heart failure; J96.01 Acute respiratory failure with hypoxia; I25.10 Atherosclerotic heart disease of native coronary artery without angina pectoris; E11.9 Type 2 diabetes mellitus without complications; J44.9 Chronic obstructive pulmonary disease, unspecified; E78.5 Hyperlipidemia, unspecified; F17.210 Nicotine dependence, cigarettes, uncomplicated; D50.9 Iron deficiency anemia, unspecified; I71.4 Abdominal aortic aneurysm, without rupture; K20.9 Esophagitis, unspecified; K44.9 Diaphragmatic hernia without obstruction or gangrene; K63.5 Polyp of colon; K57.30 Diverticulosis of large intestine without perforation or abscess without bleeding; K64.8 Other hemorrhoids; K63.89 Other specified diseases of intestine; Z98.61 Coronary angioplasty status; Z85.038 Personal history of other malignant neoplasm of large intestine; Z95.5 Presence of coronary angioplasty implant and graft; Z82.49 Family history of ischemic heart disease and other diseases of the circulatory system; Z11.59 Encounter for screening for other viral diseases; Z79.82 Long term (current) use of aspirin; Z79.84 Long term (current) use of oral hypoglycemic drugs
CPT/HCPCS: 36415; 43239; 45384; 45385; 71045; 74177; 80048; 80053; 80061; 80076; 82270; 82550; 82553; 82607; 82728; 82746; 82948; 83036; 83540; 83735; 84443; 84466; 84484; 85014; 85018; 85025; 85045; 87635; 88305; 88312; 93005; 93306; 93880; 94640; 94760; 96367; 96372; 96374; 96375; 96376; 99284; J1756; J1940; J2930; Q9967

== ENCOUNTER → 2019-08-02 | Outpatient (CLI) | payer SELFPAY, OTHER ==
[~2019-08-02] MED LIST changes: +ATORVASTATIN CA20 MG PO; +BENAZEPRIL HCL10 MG PO; +CARAFATE1 GM/10 ML PO; +FUROSEMIDE40 MG PO; +LOTREL 10-40 M1 EACH PO; +METFORMIN HCL500 MG PO; +PROTONIX20 MG PO; +TRILIPIX135 MG; +albuterol hfa INH; +metoprolol PO
--- NOTE | 2019-08-02 14:12 | Diagnostic Imaging Report ---
Small bowel follow-through Comparison: None Clinical History: 74-year-old male with history of anemia. Total number of images submitted: 13 [employer] [place] radiographs were obtained. After oral ingestion of barium, overhead photospot x-ray images acquired periodically until the contrast medium across the ileocecal valve. Spot compression views of the areas of interest were obtained additionally if needed. Report: [employer] [place]: There are 5 lumbar type vertebrae. There is presence of extensive degenerative disc disease changes most pronounced at L4-L5 level. There is presence of patchy atherosclerotic calcification in the paralumbar areas suggesting the presence of an abdominal aortic aneurysm. Atherosclerotic calcification of the splenic artery and iliac and femoral arteries is also visualized. The bowel gas pattern is nonobstructive. There is quick passage of the orally administered barium into the jejunum. No gross filling defects or mucosal fold abnormality seen in the stomach and duodenum. The orally administered contrast medium crosses the ileocecal valve at 40 minutes film. There is no small bowel obstruction. The mucosal fold pattern of small bowel is unremarkable. There is no large gross intraluminal filling defect. There is no extrinsic mass effect on the small bowel. The terminal ileum and ileocecal region appear to be normal. Impression: Normal small bowel follow through study. Signed by: José Antonio Aguiar MD on 08/02/2019 2:08 PM
== END ==
LOC: DX 10:22
PROVIDERS: ATTEND Internal Medicine Gastroenterology
DX: D64.89 Other specified anemias (principal); Z11.59 Encounter for screening for other viral diseases
CPT/HCPCS: 74250; 87635

== ENCOUNTER 2019-08-12 01:52 | Emergency (ER) | payer MEDICARE, OTHER ==
[~2019-08-12] VITALS: Ht 182.9 cm; Wt 75.7 kg
--- NOTE | 2019-08-12 02:18 | Emergency Department Note ---
History of Present Illnes History of Present Illness Chief Complaint: Respiratory History of Present Illness This is a 74 year old male with a history of CAD status post remote a ngioplasty, hypertension, hyperlipidemia, CHF, NIDDM, COPD, oxygen dependence (06/2019) and infrarenal AAA, presents with progressively worsening shortness of breath over the last 2-3 weeks, that seemed worse this evening at 5 PM. Patient also had chest tightness and mild nausea this evening. Despite wearing his oxygen, patient was unable to breathe normally, so his brought him in for evaluation. Patient was last hospitalized from 07/01 - 07/06 [facility] due to CHF exacerbation. Patient states that he was discharged on Lasix, and ran out of it several days ago. He just had it filled today and he states that he took 80 mg orally at about 4 PM yesterday afternoon. Patient denies any fever, chills, nausea, vomiting, or diarrhea. He has had a dry cough, denies any known sick contacts or Covid 19 exposures. Patient was discharged on home oxygen on 07/07/2019, and he's on 2-2.5 L whenever he exerts himself or feels weak. He has been wearing the oxygen continuously over the past 2-3 days. Patient states he quit smoking when he was hospitalized in. Prior to that, he is smoking 1 pack per day for at least 30 years. States he has an albuterol inhaler that he uses as needed. Patient was last seen in hospital by Dr. Partha Allan, Dr. Smith and Dr Alok Suárez. Historian: Patient Arrival Mode: Car Elect Equip Maint Eng Required: No Onset (how long ago): week(s) (5 weeks, worse over the past 3 days.) Location: chest/lungs Quality: tightness, SOB Radiation: Reports non-radiation Severity: moderate Onset quality: gradual Duration (how long): week(s) (5) Timing of current episode: constant Progression: worsening Context: Reports recent illness, Reports non-compliance w/ medications (ran out of Lasix, and had difficulty filling, as he did not know who prescribed for him when he was discharged from the hospital.); Denies trauma/injury Relieving factors: rest Exacerbating factors: movement (exertion, walking and talking) Associated symptoms: Reports chest pain (tightness), Reports cough (dry), Reports malaise, Reports shortness of breath; Denies fever/chills, Denies loss of appetite, Denies nausea/vomiting Treatments prior to arrival: other (Pt took 80 mg of oral lasix yesterday afternoon.) Risk factors: CAD, CHF, COPD Past Medical/Family History Physician Review I have reviewed the patient's past medical and family history. Any updates have been documented here. Past Medical History Recent Fever: No Clinical Suspicion of Infectio: No New/Unexplained Change in Ment: No Past Medical History: Hypertension, Diabetes, COPD (unclear if he has been formally diagnosed with COPD, recently quit smoking.), CHF, CAD (s/p angioplasty in 1992 (no stent placement)), Anemia (iron deficient), Hyperlipedemia Other Medical History: Infrarenal AAA - 4.5 cm x 4.4 cm (on CT 07/02/19 - surgical consultation recommended, and repeat CT in 6 mos) Oxygen Dependence 2-2.5L (prescribed at d/c on 07/07/2019) Other Surgery: ANGIOPLASTY 1992 SACROLUMBAR DISC REMOVED ABOUT 45 YEARS AGO TUMOR REMOVED FROM COLON ABOUT 6-7 YEARS AGO (Benign) Social History Smoking Cessation: Former smoker (quit 07/02/2019, 30 pack years;) Alcohol Use: Daily ("10 vodka drinks/week") Any Illegal Drug Use: Yes (occsional marijuana) Family History Family history of heart diseas: No Other Last Tetanus: unknown Any Pre-Existing Lines (PICC,: No Last Flu: No Last Pneumovax: No Review of Systems Review of Systems Constitutional: Denies chills, Denies fever EENTM: Reports no symptoms Cardiovascular: Reports chest pain (chest tightness), Reports edema (mild BLE edema) Respiratory: Reports cough (drive), Reports dyspnea, Reports dyspnea on exertion; Denies pain on inspiration, Denies pain with cough Gastrointestinal: Reports nausea; Denies abdominal pain, Denies diarrhea, Denies vomiting Genitourinary: Denies dysuria, Denies frequency Musculoskeletal: Denies joint pain, Denies neck pain Integumentary: Denies change in color, Denies rash Neurological: Reports weakness; Denies headache, Denies numbness, Denies paresthesia Psychological: Reports no symptoms Review of other systems: All other systems negative Physical Exam Related Data Allergies: Coded Allergies: No Known Allergies (Unverified , 06/01/12) Vital signs reviewed: Yes Physical Exam CONSTITUTIONAL Constitutional: Present well-developed, Present well-nourished, Present ill appearing (chronically ill-appearing male, with increased effort of breathing, though in no distress.) HENT HENT: Present normocephalic, Present atraumatic, Present oropharynx clear/moist, Present nose normal; Absent nasal congestion HENT L/R: Present left ext ear normal, Present right ext ear normal EYES Eyes: Reports PERRL, Reports conjunctivae normal NECK Neck: Present ROM normal, Present supple; Absent stridor, Absent cervical adenopathy PULMONARY Pulmonary: Absent effort normal (increased respiratory rate, without retractions in the colon), Absent breath sounds normal (diminished breath sounds at both bases, with prolonged expiratory phase), Absent rales CARDIOVASCULAR Cardiovascular: Present regular rhythm, Present heart sounds normal, Present capillary refill normal, Present normal rate GASTROINTESTINAL Abdominal: Present soft, Present nontender, Present bowel sounds normal; Absent tender, Absent guarding GENITOURINARY Genitourinary: Present exam deferred SKIN Skin: Present warm, Present dry MUSCULOSKELETAL Musculoskeletal: Present ROM normal, Present edema (1+ pedal edema) NEUROLOGICAL Neurological: Present alert, Present oriented x 3 PSYCHOLOGICAL Psychological: Present mood/affect normal Results Laboratory Laboratory CMP - nl, except for glucose = 146; CBC = nl except for H/H = 9.5/32.2; Cardiacs - nl except for karyn = 137; BNP = 3480; UA - neg, except for pro - 100 mg/dl; COVID 19 testing - negative 07/29/2019 Lab results reviewed: Yes Imaging Imaging results reviewed: Yes Impressions [place] [address] Patient Name: JAZMINE PRESSLEY MR #: [id number] : 1945 Age/Sex: 74/M Req #: [id number] Adm Physician: Ordered by: KASEY PEREZ MD Report #: [id number] [facility] Room/Bed: Procedure: [id number] HOPD/CXR 1 VEW - HOPD Exam Date: 08/12/19 Exam Time: 0245 REPORT STATUS: Signed EXAMINATION: CXR 1 [facility] INDICATION: Shortness of breath COMPARISON: CT chest 07/31/2019 FINDINGS: TUBES and LINES: None. LUNGS: Ill-defined bibasilar opacities. Prominence of the central pulmonary vasculature. PLEURA: Small left pleural effusion. Probable trace right pleural fluid. No pneumothorax. HEART AND MEDIASTINUM: The cardiomediastinal silhouette is at the upper limit of normal in size. BONES AND SOFT TISSUES: No acute osseous lesion. Soft tissues are unremarkable. UPPER ABDOMEN: No free air under the diaphragm. IMPRESSION: Central pulmonary venous congestion. Small left pleural effusion. Bibasilar pulmonary opacities favor atelectasis. Signed by: Kathryn Ross MD on 08/12/2019 3:29 AM Dictated By: KATHRYN ROSS MD 8 Transcribed By: HALLE on 08/12/19328 COPY TO: KASEY PEREZ MD~ Diagnostics Tests Diagnostic test(s) reviewed: Yes Procedures 12 Lead ECG Interpretation ECG Interpretation : ECG: ECG 1 Elect Equip Maint Eng: Interpreted by ED physician Date: Aug 12, 2019 Time: 02:11 Prior ECG tracings: not available for review Rhythm: sinus tachycardia Rate: tachycardia BPM: 106 QRS axis: normal ST segments normal: No ST segment flattening: I, II, aVL T waves normal: No T wave inversion: aVL, V6 Other findings: no other findings Q waves: V3 Clinical Impression: abnormal ECG Assessment & Plan Medical Decision Making MDM Consider CHF exacerbation, COPD exacerbation, pneumonia, PE Reassessment Reassessment 03:45 am - labs and chest x-ray reviewed, and patient seems to be having a CHF exacerbation. He also has a small left pleural effusion, and he has stable anemia. Discussed with patient that he will require hospitalization for optimizing his CHF. He did miss several days of Lasix at home, prior to this presentation. However his symptoms have progressed over the last 3 weeks. Patient was to follow up with cardiology upon discharge on 07/07/2019, but was unable to see Dr. Smith, who saw him in the hospital, due to insurance reasons. Explained to patient that [facility] is at capacity, and has no current available beds for his admission. 04:00 am - transfer initiated to the [facility]. 04:30 am - case discussed with Dr. Werner, hospitalist food preparation kitchen aide at [facility], who is agreeable to admitting patient to [facility] telemetry, PUI unit, pending his Covid testing. Assessment & Plan Final Impression: (1) CHF exacerbation (2) Dyspnea on exertion (3) Iron deficiency anemia (4) Dependence on supplemental oxygen (5) Hyperlipidemia (6) Type II diabetes mellitus (7) Gastritis Depart Disposition: TRANS TO OTHER [facility] ([facility]) Home Meds Reported Medications Pantoprazole Sodium (PROTONIX) 20 Mg Tablet.dr, 20 MG PO DAILY, #30 TAB 07/07/19 Furosemide (FUROSEMIDE) 40 Mg Tablet, 20 MG PO Daily, #30 TAB 07/07/19 Sucralfate (CARAFATE) 1 Gm/10 Ml Oral.susp, 1 GM PO ACHS, #120 ML 07/07/19 [metoprolol] No Conflict Check, 25 MG PO BID, #60 07/07/19 [albuterol hfa] No Conflict Check, 1 INH INH Q6H PRN for SHORTNESS OF BREATH, #1 % 07/07/19 Benazepril Hcl (BENAZEPRIL HCL) 10 Mg Tablet, 40 MG PO DAILY, #30 TAB 07/07/19 Atorvastatin Calcium (ATORVASTATIN CALCIUM) 20 Mg Tablet, 20 MG PO DAILY, #30 TAB 07/01/19 Metformin Hcl (METFORMIN HCL) 500 Mg Tablet, 500 MG PO DAILY, #60 TAB 07/01/19 Fenofibric Acid (Choline) (TRILIPIX) 135 Mg Capsule.dr, 1 CAP PO DAILY 06/04/12 Aspirin (ASPIRIN) 81 Mg Tab.chew, 81 MG PO DAILY 06/04/12 KASEY PEREZ MD Aug 12, 2019 02:18
--- NOTE | 2019-08-12 03:32 | Diagnostic Imaging Report ---
EXAMINATION: CXR 1 [facility] INDICATION: Shortness of breath COMPARISON: CT chest 07/31/2019 FINDINGS: TUBES and LINES: None. LUNGS: Ill-defined bibasilar opacities. Prominence of the central pulmonary vasculature. PLEURA: Small left pleural effusion. Probable trace right pleural fluid. No pneumothorax. HEART AND MEDIASTINUM: The cardiomediastinal silhouette is at the upper limit of normal in size. BONES AND SOFT TISSUES: No acute osseous lesion. Soft tissues are unremarkable. UPPER ABDOMEN: No free air under the diaphragm. IMPRESSION: Central pulmonary venous congestion. Small left pleural effusion. Bibasilar pulmonary opacities favor atelectasis. Signed by: Kadeem Phillips MD on 08/12/2019 3:29 AM
[2019-08-12] MEDS ORDERED: FUROSEMIDE INJ 10 MG/ML 4 ML VIAL ONE (03:46)
[2019-08-12] MEDS ORDERED: FUROSEMIDE INJ 10 MG/ML 4 ML VIAL IV SCH (09:00)
== END 2019-08-12 06:40 | disposition home or self-care (01) ==
LOC: FSED 02:50
DX: I50.9 Heart failure, unspecified (principal); E11.65 Type 2 diabetes mellitus with hyperglycemia; K29.70 Gastritis, unspecified, without bleeding; R06.00 Dyspnea, unspecified; D50.9 Iron deficiency anemia, unspecified; Z99.81 Dependence on supplemental oxygen; E78.5 Hyperlipidemia, unspecified
CPT/HCPCS: 71045; 80053; 81003; 82553; 83880; 84484; 85025; 93005; 99284; J1940